=== PATIENT | female | born 1935 | race Caucasian/White ===

== ENCOUNTER 2020-06-07 13:55 | Inpatient (IN) | payer MEDICARE ==
[~2020-06-07] VITALS: Ht 195.6 cm; Wt 68.0 kg
[2020-06-07] MEDS ORDERED: SODIUM CHLORIDE 0.9% 1000ML 1,000 ML IV STA (13:56)
[2020-06-07] MEDS ORDERED: ASPIRIN 81 MG CHEW TAB PO ONE (14:00)
[2020-06-07 14:56] LABS: BASOPHILS % 0.2 % (0.0-1.0); EOSINOPHILS % 0.1 % (0.0-6.0); HEMATOCRIT 38.6 % (34.2-44.1); LYMPHOCYTES # (AUTO) 1.5 (1.0-3.2); LYMPHOCYTES % 8.9 % (18.0-39.1); MEAN CORPUSCULAR HEMOGLOBIN 23.7 pg (28-32); MEAN CORPUSCULAR HGB CONC 33.7 g/dL (31-35); MEAN CORPUSCULAR VOLUME 70.3 fL (81-99); MONOCYTES # (AUTO) 1.4 (0.2-0.8); MONOCYTES % 8.4 % (4.4-11.3); NEUTROPHILS # (AUTO) 13.4 (2.1-6.9); NEUTROPHILS % 81.9 % (38.7-80.0); PLATELET COUNT 531 x10e3/uL (140-360); RED BLOOD COUNT 5.49 x10e6/uL (3.6-5.1); RED CELL DISTRIBUTION WIDTH 15.9 % (11.7-14.4)
[2020-06-07] MEDS ORDERED: CEFTRIAXONE SOD 1 GM in SODIUM CHLORIDE 0.9% 50ML 50 ML IV ONE (15:00)
[2020-06-07 15:10] LABS: ALANINE AMINOTRANSFERASE 10 IU/L (0-55); ALBUMIN 3.1 g/dL (3.5-5.0); ALBUMIN/GLOBULIN RATIO 0.7 (0.8-2.0); ALKALINE PHOSPHATASE 130 IU/L (40-150); ANION GAP 17.6 mmol/L (8-16); BLOOD UREA NITROGEN 15 mg/dL (7-26); BUN/CREATININE RATIO 27 (6-25); CALCIUM 8.8 mg/dL (8.4-10.2); CARBON DIOXIDE 32 mmol/L (22-29); CHLORIDE 70 mmol/L (98-107); CREATINE KINASE 45 IU/L (29-168); CREATININE, SERUM 0.56 mg/dL (0.57-1.11); EST GLOMERULAR FILTRATION RATE > 60 ML/MIN (60-); GLUCOSE 69 mg/dL (74-118)
[2020-06-07 15:13] LABS: POTASSIUM 2.6 mmol/L (3.5-5.1); SODIUM 117 mmol/L (136-145)
[2020-06-07 15:32] LABS: CLARITY,URINE SL CLOUDY (CLEAR); COLOR,URINE STRAW (YELLOW); KETONES,URINE NEGATIVE (NEGATIVE); LEUKOCYTE ESTERASE ,URINE NEGATIVE (NEGATIVE); NITRITE,URINE NEGATIVE (NEGATIVE); PROTEIN,URINE DIPSTICK 1+ (NEGATIVE); URINE UROBILINOGEN 0.2 mg/dL (0.2 - 1)
[2020-06-07 15:49] LABS: AMORPHOUS SEDIMENT,URINE MODERATE (FEW); BACTERIA,URINE FEW /HPF
[2020-06-07] MEDS ORDERED: POTASSIUM CHLORIDE 20 MEQ TAB CR PO STA (15:59)
[2020-06-07] MEDS ORDERED: POTASSIUM CHLORIDE 20MEQ/100ML 100 ML IV STA (15:59)
[2020-06-07] MEDS ORDERED: SODIUM CHLORIDE 0.9% 1000ML 1,000 ML IV SCH (16:15)
[2020-06-07] MEDS ORDERED: TIZANIDINE HCL4 M1 PO (16:19)
[2020-06-07] MEDS ORDERED: METOPROLOL SUC100 MG (16:19)
[2020-06-07] MEDS ORDERED: LASIX20 MG PO (16:19)
[2020-06-07] MEDS ORDERED: HYDROCHLOROTH12.5 MG (16:19)
[2020-06-07] MEDS ORDERED: LOSARTAN POTAS100 MG PO (16:19)
[2020-06-07] MEDS ORDERED: LEVOTHYROXINE88 MCG PO (16:19)
[2020-06-07] MEDS ORDERED: LEVEMIR100 UNIT/1 SC (16:19)
[2020-06-07] MEDS ORDERED: CYMBALTA30 MG (16:19)
[2020-06-07] MEDS ORDERED: CRESTOR10 MG PO (16:19)
[2020-06-07] MEDS ORDERED: NOVOLOG100 UNIT/1 SC ×2 (16:19)
[2020-06-07] MEDS ORDERED: PROCARDIA XL30 MG (16:19)
[2020-06-07] MEDS ORDERED: NEURONTIN300 MG PO (16:19)
[2020-06-07] MEDS: PIPERACILLIN/TAZOBAC 3.375 GM in SODIUM CHLORIDE 0.9% 50ML 50 ML IV SCH ×2 (16:55→23:20)
[2020-06-07 18:00] LABS: MAGNESIUM 1.9 MG/DL (1.3-2.1); PHOSPHORUS 2.2 MG/DL (2.3-4.7)
[2020-06-07] MEDS: KCL 20MEQ/.9 SOD CHL 1,000 ML IV SCH (18:00)
[2020-06-07] MEDS ORDERED: POTASSIUM CHLORIDE 20MEQ/100ML 100 ML IV ONE (18:00)
[2020-06-07 18:06] LABS: FREE THYROXINE INDEX 2.9456 (1.4-3.8); THYROID STIMULATING HORMONE 0.954 uIU/mL (0.350-4.940)
[2020-06-07 18:12] VITALS: BP 142/54
[2020-06-07] MEDS ORDERED: ONDANSETRON HCL INJ 2MG/ML 2ML 2 MG/ML VIAL IV PRN (18:15)
[2020-06-07] MEDS ORDERED: HYDRALAZINE HCL 20 MG/ML VIAL IV PRN (18:15)
[2020-06-07] MEDS ORDERED: ACETAMINOPHEN 325 MG TAB PO PRN (18:15)
[2020-06-07] MEDS ORDERED: DEXTROSE 50% SYRINGE 50 ML IV PRN (18:15)
[2020-06-07 18:19] VITALS: BP 142/54
[2020-06-07 20:00] VITALS: BP 140/57
[2020-06-07] MEDS: SODIUM CHLORIDE 1 GM TAB PO SCH (20:48)
[2020-06-07] MEDS: INSULIN REGULAR, HUMAN 100 UNIT/1 ML 3ML VIAL SQ SCH (20:53)
[2020-06-07 21:21] VITALS: BP 140/57
[2020-06-07] MEDS ORDERED: PIPERACILLIN/TAZOBAC 3.375 GM VIAL ONE (21:59)
[2020-06-07] MEDS: GABAPENTIN 300 MG CAP PO SCH (21:59)
[2020-06-08] VITALS (7 sets, daily range): BP systolic 120–159; BP diastolic 52–61
[2020-06-08] MEDS: KCL 20MEQ/.9 SOD CHL 1,000 ML IV SCH ×2 (03:30→13:30)
[2020-06-08] MEDS ORDERED: SODIUM CHLORIDE 0.9% 50ML 50 ML ONE (04:11)
[2020-06-08] MEDS ORDERED: PIPERACILLIN/TAZOBAC 3.375 GM VIAL ONE ×2 (04:11→11:13)
[2020-06-08 05:12] LABS: BASOPHILS % 0.3 % (0.0-1.0); EOSINOPHILS # (AUTO) 0.1 (0.0-0.4); EOSINOPHILS % 0.4 % (0.0-6.0); HEMATOCRIT 33.5 % (34.2-44.1); LYMPHOCYTES # (AUTO) 1.4 (1.0-3.2); LYMPHOCYTES % 12.3 % (18.0-39.1); MEAN CORPUSCULAR HEMOGLOBIN 23.2 pg (28-32); MEAN CORPUSCULAR HGB CONC 32.8 g/dL (31-35); MEAN CORPUSCULAR VOLUME 70.7 fL (81-99); MONOCYTES # (AUTO) 1.3 (0.2-0.8); MONOCYTES % 11.7 % (4.4-11.3); NEUTROPHILS # (AUTO) 8.5 (2.1-6.9); NEUTROPHILS % 74.9 % (38.7-80.0); PLATELET COUNT 412 x10e3/uL (140-360); RED BLOOD COUNT 4.74 x10e6/uL (3.6-5.1); RED CELL DISTRIBUTION WIDTH 15.9 % (11.7-14.4)
[2020-06-08] MEDS: PIPERACILLIN/TAZOBAC 3.375 GM in SODIUM CHLORIDE 0.9% 50ML 50 ML IV SCH ×2 (05:33→17:23)
[2020-06-08] MEDS: LEVOTHYROXINE SODIUM 88 MCG TAB PO SCH (05:33)
[2020-06-08 05:38] LABS: ALANINE AMINOTRANSFERASE 9 IU/L (0-55); ALBUMIN 2.4 g/dL (3.5-5.0); ALBUMIN/GLOBULIN RATIO 0.8 (0.8-2.0); ALKALINE PHOSPHATASE 99 IU/L (40-150); ANION GAP 18.3 mmol/L (8-16); BLOOD UREA NITROGEN 8 mg/dL (7-26); BUN/CREATININE RATIO 16 (6-25); CALCIUM 7.4 mg/dL (8.4-10.2); CARBON DIOXIDE 23 mmol/L (22-29); CHLORIDE 82 mmol/L (98-107); CREATININE, SERUM 0.49 mg/dL (0.57-1.11); EST GLOMERULAR FILTRATION RATE > 60 ML/MIN (60-); GLUCOSE 106 mg/dL (74-118); POTASSIUM 3.3 mmol/L (3.5-5.1); SODIUM 120 mmol/L (136-145)
[2020-06-08 07:13] LABS: CREATINE KINASE MB 1.4 ng/mL (0-5.0)
[2020-06-08] MEDS: INSULIN REGULAR, HUMAN 100 UNIT/1 ML 3ML VIAL SQ SCH ×4 (07:30→21:00)
[2020-06-08] MEDS: DULOXETINE HCL 30 MG DELAYED RELEASE PO SCH (09:00)
[2020-06-08] MEDS: GABAPENTIN 300 MG CAP PO SCH (09:00)
[2020-06-08] MEDS: SODIUM CHLORIDE 1 GM TAB PO SCH ×3 (09:00→21:00)
[2020-06-08] MEDS: NIFEDIPINE CR 30 MG TAB PO SCH (09:00)
[2020-06-08 09:56] LABS: MAGNESIUM 1.6 MG/DL (1.3-2.1); PHOSPHORUS 1.6 MG/DL (2.3-4.7)
[2020-06-08] MEDS ORDERED: POTASSIUM PHOSPHATE 15 MM in SODIUM CHLORIDE 0.9% 250ML 250 ML IV ONE ×2 (10:15→12:30)
[2020-06-08] MEDS ORDERED: MAGNESIUM SULFATE 2GM/50ML 50 ML IV ONE (10:15)
[2020-06-08] MEDS ORDERED: POTASSIUM CHLORIDE 20 MEQ TAB CR PO ONE (10:15)
[2020-06-08] MEDS ORDERED: AZITHROMYCIN 500MG/NS 250 ML 250 ML IV SCH ×2 (13:00→17:00)
[2020-06-08] MEDS ORDERED: CEFTRIAXONE SOD 1 GM/50 ML BAG IV SCH (13:00)
[2020-06-08] MEDS ORDERED: CEFTRIAXONE SOD 1 GM in SODIUM CHLORIDE 0.9% 50ML 50 ML IV SCH ×2 (13:15→18:00)
[2020-06-08 13:41] LABS: CREATINE KINASE MB 1.4 ng/mL (0-5.0)
[2020-06-08] MEDS ORDERED: PIPER-TAZ 3.375 GM 50 ML IV SCH (14:00)
[2020-06-08] MEDS: ACETAMINOPHEN/CODEINE 300MG - 30MG TAB PO PRN (14:37)
[2020-06-08] MEDS: DRONABINOL 2.5MG PO SCH (16:25)
[2020-06-08] MEDS: VANCOMYCIN 1GM/NS 250 ML 250 ML IV SCH (17:00)
[2020-06-08] MEDS: HEPARIN SOD (PORCINE) 5,000 UNIT/ML VIAL SC SCH (21:00)
[2020-06-08] MEDS: SIMVASTATIN 20 MG TAB PO SCH (21:00)
[2020-06-09] VITALS (8 sets, daily range): BP systolic 131–168; BP diastolic 51–67
[2020-06-09] MEDS: PIPERACILLIN/TAZOBAC 3.375 GM in SODIUM CHLORIDE 0.9% 50ML 50 ML IV SCH ×3 (02:10→17:22)
[2020-06-09] MEDS: KCL 20MEQ/.9 SOD CHL 1,000 ML IV SCH ×3 (02:10→19:30)
[2020-06-09] MEDS: ACETAMINOPHEN/CODEINE 300MG - 30MG TAB PO PRN (04:00)
[2020-06-09] MEDS: VANCOMYCIN 1GM/NS 250 ML 250 ML IV SCH ×2 (05:00→17:00)
[2020-06-09] MEDS: LEVOTHYROXINE SODIUM 88 MCG TAB PO SCH (05:44)
[2020-06-09 05:53] LABS: BASOPHILS % 0.3 % (0.0-1.0); EOSINOPHILS # (AUTO) 0.2 (0.0-0.4); EOSINOPHILS % 1.1 % (0.0-6.0); HEMOGLOBIN 11.2 g/dL (12.0-16.0); LYMPHOCYTES # (AUTO) 1.6 (1.0-3.2); LYMPHOCYTES % 11.8 % (18.0-39.1); MEAN CORPUSCULAR HEMOGLOBIN 23.8 pg (28-32); MEAN CORPUSCULAR HGB CONC 32.9 g/dL (31-35); MEAN CORPUSCULAR VOLUME 72.2 fL (81-99); MONOCYTES # (AUTO) 1.5 (0.2-0.8); MONOCYTES % 11.4 % (4.4-11.3); NEUTROPHILS # (AUTO) 9.8 (2.1-6.9); NEUTROPHILS % 74.6 % (38.7-80.0); PLATELET COUNT 447 x10e3/uL (140-360); RED BLOOD COUNT 4.71 x10e6/uL (3.6-5.1); RED CELL DISTRIBUTION WIDTH 16.4 % (11.7-14.4)
[2020-06-09 06:06] LABS: INR 1.03; PROTHROMBIN TIME 14.1 seconds (11.9-14.5)
[2020-06-09 06:15] LABS: ANION GAP 15.7 mmol/L (8-16); BLOOD UREA NITROGEN 7 mg/dL (7-26); BUN/CREATININE RATIO 15 (6-25); CALCIUM 7.3 mg/dL (8.4-10.2); CARBON DIOXIDE 22 mmol/L (22-29); CHLORIDE 90 mmol/L (98-107); CREATININE, SERUM 0.47 mg/dL (0.57-1.11); EST GLOMERULAR FILTRATION RATE > 60 ML/MIN (60-); GLUCOSE 88 mg/dL (74-118); PHOSPHORUS 1.3 MG/DL (2.3-4.7); POTASSIUM 3.7 mmol/L (3.5-5.1); SODIUM 124 mmol/L (136-145)
[2020-06-09] MEDS: INSULIN REGULAR, HUMAN 100 UNIT/1 ML 3ML VIAL SQ SCH ×4 (07:30→22:16)
[2020-06-09] MEDS: DRONABINOL 2.5MG PO SCH ×2 (07:30→16:30)
[2020-06-09] MEDS: HEPARIN SOD (PORCINE) 5,000 UNIT/ML VIAL SC SCH (09:00)
[2020-06-09] MEDS: DULOXETINE HCL 30 MG DELAYED RELEASE PO SCH (09:00)
[2020-06-09] MEDS: NIFEDIPINE CR 30 MG TAB PO SCH (09:00)
[2020-06-09] MEDS: THIAMINE HCL 100 MG TAB PO SCH (09:00)
[2020-06-09] MEDS: MULTIVITAMINS/MINERALS TAB PO SCH (09:00)
[2020-06-09] MEDS: SODIUM CHLORIDE 1 GM TAB PO SCH ×3 (09:00→19:54)
[2020-06-09] MEDS: FOLIC ACID 1 MG TAB PO SCH (09:00)
[2020-06-09] MEDS: GABAPENTIN 300 MG CAP PO SCH (09:00)
[2020-06-09] MEDS ORDERED: PHOSPHORUS 250 MG TAB PO ONE (14:30)
[2020-06-09] MEDS: LOSARTAN POTASSIUM 100 MG TAB PO SCH (17:00)
[2020-06-09] MEDS: SIMVASTATIN 20 MG TAB PO SCH (19:54)
[2020-06-10] VITALS (7 sets, daily range): BP systolic 99–160; BP diastolic 55–70
[2020-06-10] MEDS: PIPERACILLIN/TAZOBAC 3.375 GM in SODIUM CHLORIDE 0.9% 50ML 50 ML IV SCH ×3 (02:00→20:00)
[2020-06-10] MEDS: VANCOMYCIN 1GM/NS 250 ML 250 ML IV SCH ×2 (05:15→17:18)
[2020-06-10] MEDS: KCL 20MEQ/.9 SOD CHL 1,000 ML IV SCH (05:30)
[2020-06-10] MEDS: LEVOTHYROXINE SODIUM 88 MCG TAB PO SCH (05:49)
[2020-06-10 05:51] LABS: ALANINE AMINOTRANSFERASE 6 IU/L (0-55); ALBUMIN 2.2 g/dL (3.5-5.0); ALBUMIN/GLOBULIN RATIO 0.6 (0.8-2.0); ALKALINE PHOSPHATASE 92 IU/L (40-150); ANION GAP 16.6 mmol/L (8-16); BLOOD UREA NITROGEN 5 mg/dL (7-26); BUN/CREATININE RATIO 10 (6-25); CALCIUM 7.5 mg/dL (8.4-10.2); CARBON DIOXIDE 20 mmol/L (22-29); CHLORIDE 97 mmol/L (98-107); CREATININE, SERUM 0.52 mg/dL (0.57-1.11); EST GLOMERULAR FILTRATION RATE > 60 ML/MIN (60-); GLUCOSE 158 mg/dL (74-118); POTASSIUM 3.6 mmol/L (3.5-5.1); SODIUM 130 mmol/L (136-145)
[2020-06-10 05:52] LABS: BASOPHILS # (AUTO) 0.1 (0.0-0.1); BASOPHILS % 0.4 % (0.0-1.0); EOSINOPHILS # (AUTO) 0.1 (0.0-0.4); EOSINOPHILS % 0.4 % (0.0-6.0); HEMATOCRIT 34.2 % (34.2-44.1); HEMOGLOBIN 11.1 g/dL (12.0-16.0); LYMPHOCYTES # (AUTO) 1.6 (1.0-3.2); LYMPHOCYTES % 10.3 % (18.0-39.1); MEAN CORPUSCULAR HEMOGLOBIN 24.2 pg (28-32); MEAN CORPUSCULAR HGB CONC 32.5 g/dL (31-35); MEAN CORPUSCULAR VOLUME 74.5 fL (81-99); MONOCYTES # (AUTO) 1.7 (0.2-0.8); MONOCYTES % 10.8 % (4.4-11.3); NEUTROPHILS # (AUTO) 12.1 (2.1-6.9); NEUTROPHILS % 77.4 % (38.7-80.0); PLATELET COUNT 415 x10e3/uL (140-360); RED BLOOD COUNT 4.59 x10e6/uL (3.6-5.1)
[2020-06-10] MEDS: DRONABINOL 2.5MG PO SCH ×2 (07:30→16:14)
[2020-06-10] MEDS: INSULIN REGULAR, HUMAN 100 UNIT/1 ML 3ML VIAL SQ SCH ×4 (08:17→21:47)
[2020-06-10] MEDS: SODIUM CHLORIDE 1 GM TAB PO SCH ×3 (09:00→21:44)
[2020-06-10] MEDS: LOSARTAN POTASSIUM 100 MG TAB PO SCH ×2 (09:00→16:14)
[2020-06-10] MEDS: DULOXETINE HCL 30 MG DELAYED RELEASE PO SCH (11:50)
[2020-06-10] MEDS: MULTIVITAMINS/MINERALS TAB PO SCH (11:50)
[2020-06-10] MEDS: FOLIC ACID 1 MG TAB PO SCH (11:50)
[2020-06-10] MEDS: GABAPENTIN 300 MG CAP PO SCH (11:50)
[2020-06-10] MEDS: NIFEDIPINE CR 30 MG TAB PO SCH (11:51)
[2020-06-10] MEDS: THIAMINE HCL 100 MG TAB PO SCH (11:51)
[2020-06-10] MEDS: SIMVASTATIN 20 MG TAB PO SCH (21:44)
[2020-06-10] MEDS: HEPARIN SOD (PORCINE) 5,000 UNIT/ML VIAL SC SCH (21:44)
[2020-06-11] VITALS (8 sets, daily range): BP systolic 100–140; BP diastolic 43–108
[2020-06-11] MEDS: PIPERACILLIN/TAZOBAC 3.375 GM in SODIUM CHLORIDE 0.9% 50ML 50 ML IV SCH ×3 (02:00→17:00)
[2020-06-11 05:08] LABS: BASOPHILS % 0.3 % (0.0-1.0); EOSINOPHILS # (AUTO) 0.2 (0.0-0.4); EOSINOPHILS % 1.7 % (0.0-6.0); LYMPHOCYTES # (AUTO) 1.6 (1.0-3.2); LYMPHOCYTES % 12.7 % (18.0-39.1); MEAN CORPUSCULAR HEMOGLOBIN 23.9 pg (28-32); MEAN CORPUSCULAR HGB CONC 32.3 g/dL (31-35); MONOCYTES # (AUTO) 1.3 (0.2-0.8); NEUTROPHILS # (AUTO) 9.3 (2.1-6.9); NEUTROPHILS % 74.7 % (38.7-80.0); PLATELET COUNT 377 x10e3/uL (140-360); RED BLOOD COUNT 4.19 x10e6/uL (3.6-5.1); RED CELL DISTRIBUTION WIDTH 17.2 % (11.7-14.4)
[2020-06-11 05:34] LABS: BLOOD UREA NITROGEN < 5 mg/dL (7-26); CALCIUM 7.6 mg/dL (8.4-10.2); CARBON DIOXIDE 23 mmol/L (22-29); CHLORIDE 97 mmol/L (98-107); CREATININE, SERUM 0.54 mg/dL (0.57-1.11); EST GLOMERULAR FILTRATION RATE > 60 ML/MIN (60-); GLUCOSE 149 mg/dL (74-118); SODIUM 131 mmol/L (136-145)
[2020-06-11 05:52] LABS: BUN/CREATININE RATIO 9 (6-25)
[2020-06-11] MEDS: LEVOTHYROXINE SODIUM 88 MCG TAB PO SCH (06:00)
[2020-06-11] MEDS: VANCOMYCIN 1GM/NS 250 ML 250 ML IV SCH ×2 (06:43→17:45)
[2020-06-11] MEDS: INSULIN REGULAR, HUMAN 100 UNIT/1 ML 3ML VIAL SQ SCH ×4 (08:30→21:00)
[2020-06-11] MEDS: FOLIC ACID 1 MG TAB PO SCH (08:50)
[2020-06-11] MEDS: MULTIVITAMINS/MINERALS TAB PO SCH (08:51)
[2020-06-11] MEDS: DRONABINOL 2.5MG PO SCH ×2 (08:59→16:32)
[2020-06-11] MEDS: THIAMINE HCL 100 MG TAB PO SCH (08:59)
[2020-06-11] MEDS: HEPARIN SOD (PORCINE) 5,000 UNIT/ML VIAL SC SCH ×2 (09:00→21:00)
[2020-06-11] MEDS: SODIUM CHLORIDE 1 GM TAB PO SCH ×3 (09:00→21:00)
[2020-06-11] MEDS ORDERED: POTASSIUM CHLORIDE 10MEQ EA PO NR (10:30)
[2020-06-11] MEDS: NYSTATIN SUSPENSION 5 ML UDC PO SCH ×2 (16:33→22:00)
[2020-06-11] MEDS: SIMVASTATIN 20 MG TAB PO SCH (21:00)
[2020-06-11] MEDS ORDERED: GABAPENTIN 300 MG CAP PO SCH (21:00)
[2020-06-11] MEDS: METOPROLOL TARTRATE 25 MG TAB PO SCH (23:00)
[2020-06-12] MEDS: PIPERACILLIN/TAZOBAC 3.375 GM in SODIUM CHLORIDE 0.9% 50ML 50 ML IV SCH ×2 (02:00→10:01)
[2020-06-12] MEDS: VANCOMYCIN 1GM/NS 250 ML 250 ML IV SCH (05:00)
[2020-06-12] MEDS: NYSTATIN SUSPENSION 5 ML UDC PO SCH ×3 (06:00→21:48)
[2020-06-12] MEDS: LEVOTHYROXINE SODIUM 88 MCG TAB PO SCH (06:00)
[2020-06-12] MEDS: INSULIN REGULAR, HUMAN 100 UNIT/1 ML 3ML VIAL SQ SCH ×4 (07:30→20:58)
[2020-06-12 08:24] LABS: ALANINE AMINOTRANSFERASE 11 IU/L (0-55); ALBUMIN 2.1 g/dL (3.5-5.0); ALBUMIN/GLOBULIN RATIO 0.6 (0.8-2.0); ALKALINE PHOSPHATASE 96 IU/L (40-150); ANION GAP 16.1 mmol/L (8-16); BLOOD UREA NITROGEN 5 mg/dL (7-26); BUN/CREATININE RATIO 10 (6-25); CARBON DIOXIDE 26 mmol/L (22-29); CHLORIDE 95 mmol/L (98-107); EST GLOMERULAR FILTRATION RATE > 60 ML/MIN (60-); GLUCOSE 143 mg/dL (74-118); MAGNESIUM 1.8 MG/DL (1.3-2.1); POTASSIUM 3.1 mmol/L (3.5-5.1); SODIUM 134 mmol/L (136-145)
[2020-06-12 08:30] VITALS: BP 149/74
[2020-06-12] MEDS: MULTIVITAMINS/MINERALS TAB PO SCH (08:35)
[2020-06-12] MEDS: THIAMINE HCL 100 MG TAB PO SCH (08:35)
[2020-06-12] MEDS: DRONABINOL 2.5MG PO SCH ×2 (08:35→16:48)
[2020-06-12] MEDS: SODIUM CHLORIDE 1 GM TAB PO SCH ×3 (08:35→21:45)
[2020-06-12] MEDS: FOLIC ACID 1 MG TAB PO SCH (08:35)
[2020-06-12] MEDS: METOPROLOL TARTRATE 25 MG TAB PO SCH ×2 (08:36→16:53)
[2020-06-12] MEDS: HEPARIN SOD (PORCINE) 5,000 UNIT/ML VIAL SC SCH ×2 (08:39→21:47)
[2020-06-12 08:56] VITALS: BP 149/74
[2020-06-12] MEDS ORDERED: PIPERACILLIN/TAZOBAC 3.375 GM in SODIUM CHLORIDE 0.9% 50ML 50 ML IV SCH ×5 (11:32→18:00)
[2020-06-12 11:52] VITALS: BP 146/62
[2020-06-12] MEDS ORDERED: POTASSIUM CHLORIDE 20MEQ/100ML 200 ML IV ONE (14:00)
[2020-06-12] MEDS: KCL 20MEQ/.9 SOD CHL 1,000 ML IV SCH (14:19)
[2020-06-12 16:15] VITALS: BP 145/78
[2020-06-12] MEDS ORDERED: PIPER-TAZ 3.375 GM 50 ML IV SCH (18:00)
[2020-06-12 21:00] VITALS: BP 142/96
[2020-06-12] MEDS: SIMVASTATIN 20 MG TAB PO SCH (21:45)
[2020-06-13 05:00] LABS: BASOPHILS % 0.3 % (0.0-1.0); EOSINOPHILS % 0.2 % (0.0-6.0); HEMATOCRIT 31.6 % (34.2-44.1); LYMPHOCYTES # (AUTO) 1.5 (1.0-3.2); LYMPHOCYTES % 13.1 % (18.0-39.1); MEAN CORPUSCULAR HEMOGLOBIN 24.1 pg (28-32); MEAN CORPUSCULAR HGB CONC 31.6 g/dL (31-35); MEAN CORPUSCULAR VOLUME 76.1 fL (81-99); MONOCYTES # (AUTO) 1.1 (0.2-0.8); MONOCYTES % 9.4 % (4.4-11.3); NEUTROPHILS % 76.5 % (38.7-80.0); PLATELET COUNT 210 x10e3/uL (140-360); RED BLOOD COUNT 4.15 x10e6/uL (3.6-5.1); RED CELL DISTRIBUTION WIDTH 18.2 % (11.7-14.4)
[2020-06-13] MEDS: KCL 20MEQ/.9 SOD CHL 1,000 ML IV SCH ×2 (05:40→16:40)
[2020-06-13] MEDS: LEVOTHYROXINE SODIUM 88 MCG TAB PO SCH (05:51)
[2020-06-13] MEDS: NYSTATIN SUSPENSION 5 ML UDC PO SCH ×3 (05:57→21:39)
[2020-06-13 06:37] LABS: ALANINE AMINOTRANSFERASE 8 IU/L (0-55); ALBUMIN 2.1 g/dL (3.5-5.0); ALBUMIN/GLOBULIN RATIO 0.6 (0.8-2.0); ALKALINE PHOSPHATASE 92 IU/L (40-150); ANION GAP 19.7 mmol/L (8-16); BLOOD UREA NITROGEN 6 mg/dL (7-26); BUN/CREATININE RATIO 12 (6-25); CALCIUM 7.8 mg/dL (8.4-10.2); CARBON DIOXIDE 22 mmol/L (22-29); CHLORIDE 98 mmol/L (98-107); CREATININE, SERUM 0.52 mg/dL (0.57-1.11); EST GLOMERULAR FILTRATION RATE > 60 ML/MIN (60-); GLUCOSE 157 mg/dL (74-118); POTASSIUM 3.7 mmol/L (3.5-5.1); SODIUM 136 mmol/L (136-145)
[2020-06-13 08:05] VITALS: BP 134/79
[2020-06-13] MEDS: FOLIC ACID 1 MG TAB PO SCH (08:28)
[2020-06-13] MEDS: DRONABINOL 2.5MG PO SCH ×2 (08:28→16:30)
[2020-06-13] MEDS: THIAMINE HCL 100 MG TAB PO SCH (08:29)
[2020-06-13] MEDS: HEPARIN SOD (PORCINE) 5,000 UNIT/ML VIAL SC SCH ×2 (08:31→21:00)
[2020-06-13] MEDS: SODIUM CHLORIDE 1 GM TAB PO SCH ×3 (08:31→21:39)
[2020-06-13] MEDS: METOPROLOL TARTRATE 25 MG TAB PO SCH ×2 (08:31→16:36)
[2020-06-13] MEDS: MULTIVITAMINS/MINERALS TAB PO SCH (08:31)
[2020-06-13] MEDS: INSULIN REGULAR, HUMAN 100 UNIT/1 ML 3ML VIAL SQ SCH ×4 (08:41→21:00)
[2020-06-13 08:42] VITALS: BP 134/79
[2020-06-13 11:49] VITALS: BP 132/66
[2020-06-13 15:36] VITALS: BP 140/76
[2020-06-13 20:18] VITALS: BP 140/76
[2020-06-13] MEDS: INSULIN GLARGINE 100 UNITS/ML VIAL SQ SCH (21:00)
[2020-06-13] MEDS: SIMVASTATIN 20 MG TAB PO SCH (21:39)
[2020-06-14] MEDS: NYSTATIN SUSPENSION 5 ML UDC PO SCH ×3 (05:38→22:00)
[2020-06-14] MEDS: LEVOTHYROXINE SODIUM 88 MCG TAB PO SCH (05:39)
[2020-06-14] MEDS: KCL 20MEQ/.9 SOD CHL 1,000 ML IV SCH (06:32)
[2020-06-14] MEDS: INSULIN REGULAR, HUMAN 100 UNIT/1 ML 3ML VIAL SQ SCH ×4 (07:30→21:00)
[2020-06-14 08:12] VITALS: BP 151/74
[2020-06-14 08:24] VITALS: BP 151/74
[2020-06-14] MEDS: DRONABINOL 2.5MG PO SCH ×2 (09:26→17:06)
[2020-06-14] MEDS: FOLIC ACID 1 MG TAB PO SCH (09:26)
[2020-06-14] MEDS: METOPROLOL TARTRATE 25 MG TAB PO SCH ×2 (09:28→17:07)
[2020-06-14] MEDS: MULTIVITAMINS/MINERALS TAB PO SCH (09:28)
[2020-06-14] MEDS: THIAMINE HCL 100 MG TAB PO SCH (09:29)
[2020-06-14] MEDS: HEPARIN SOD (PORCINE) 5,000 UNIT/ML VIAL SC SCH ×2 (09:40→21:00)
[2020-06-14 12:45] VITALS: BP_SYST 133; BP_SYST 183; BP_DIAS 82
[2020-06-14 15:12] VITALS: BP 123/56
[2020-06-14 20:44] VITALS: BP 177/143
[2020-06-14] MEDS: INSULIN GLARGINE 100 UNITS/ML VIAL SQ SCH (21:00)
[2020-06-14] MEDS: SIMVASTATIN 20 MG TAB PO SCH (21:24)
[2020-06-15 05:42] LABS: BASOPHILS % 0.4 % (0.0-1.0); EOSINOPHILS # (AUTO) 0.1 (0.0-0.4); EOSINOPHILS % 0.7 % (0.0-6.0); HEMATOCRIT 30.6 % (34.2-44.1); HEMOGLOBIN 9.8 g/dL (12.0-16.0); LYMPHOCYTES # (AUTO) 1.2 (1.0-3.2); LYMPHOCYTES % 11.1 % (18.0-39.1); MEAN CORPUSCULAR VOLUME 74.8 fL (81-99); MONOCYTES # (AUTO) 0.9 (0.2-0.8); MONOCYTES % 8.5 % (4.4-11.3); NEUTROPHILS # (AUTO) 8.4 (2.1-6.9); NEUTROPHILS % 78.5 % (38.7-80.0); PLATELET COUNT 390 x10e3/uL (140-360); RED BLOOD COUNT 4.09 x10e6/uL (3.6-5.1); RED CELL DISTRIBUTION WIDTH 18.2 % (11.7-14.4)
[2020-06-15 05:58] LABS: ANION GAP 12.7 mmol/L (8-16); BLOOD UREA NITROGEN 13 mg/dL (7-26); CARBON DIOXIDE 26 mmol/L (22-29); CHLORIDE 104 mmol/L (98-107); CREATININE, SERUM 0.55 mg/dL (0.57-1.11); POTASSIUM 3.7 mmol/L (3.5-5.1); SODIUM 139 mmol/L (136-145)
[2020-06-15 05:59] LABS: ALANINE AMINOTRANSFERASE 11 IU/L (0-55); ALBUMIN/GLOBULIN RATIO 0.6 (0.8-2.0); ALKALINE PHOSPHATASE 92 IU/L (40-150); BUN/CREATININE RATIO 24 (6-25); CALCIUM 8.1 mg/dL (8.4-10.2); EST GLOMERULAR FILTRATION RATE > 60 ML/MIN (60-); GLUCOSE 167 mg/dL (74-118)
[2020-06-15] MEDS: NYSTATIN SUSPENSION 5 ML UDC PO SCH (06:13)
[2020-06-15] MEDS: LEVOTHYROXINE SODIUM 88 MCG TAB PO SCH (06:14)
[2020-06-15 08:02] VITALS: BP 142/78
[2020-06-15] MEDS: INSULIN REGULAR, HUMAN 100 UNIT/1 ML 3ML VIAL SQ SCH ×3 (08:30→17:30)
[2020-06-15] MEDS: MULTIVITAMINS/MINERALS TAB PO SCH (09:20)
[2020-06-15] MEDS: FOLIC ACID 1 MG TAB PO SCH (09:20)
[2020-06-15] MEDS: THIAMINE HCL 100 MG TAB PO SCH (09:20)
[2020-06-15] MEDS: METOPROLOL TARTRATE 25 MG TAB PO SCH ×2 (09:20→17:30)
[2020-06-15] MEDS: HEPARIN SOD (PORCINE) 5,000 UNIT/ML VIAL SC SCH (09:20)
[2020-06-15 09:49] VITALS: BP 142/78
[2020-06-15 12:00] VITALS: BP 140/74
[2020-06-15] MEDS ORDERED: Insulin Glargine SQ (15:10)
[2020-06-15] MEDS ORDERED: LOPRESSOR25 MG PO (15:10)
[2020-06-15] MEDS ORDERED: SODIUM CHLORIDE 0.9% 500ML 500 ML IV ONE (15:45)
[2020-06-15 15:54] VITALS: BP 137/89
== END 2020-06-15 19:21 | DRG 871 ==
LOC: ER 14:01 → ERHOLD 16:24 → MED/SURG2 17:40
PROVIDERS: ADMIT Internal Medicine; ATTEND Internal Medicine
DX: A41.9 Sepsis, unspecified organism (principal); J69.0 Pneumonitis due to inhalation of food and vomit; J12.9 Viral pneumonia, unspecified; G93.41 Metabolic encephalopathy; J90 Pleural effusion, not elsewhere classified; E87.1 Hypo-osmolality and hyponatremia; N39.0 Urinary tract infection, site not specified; M48.54XA Collapsed vertebra, not elsewhere classified, thoracic region, initial encounter for fracture; B37.0 Candidal stomatitis; E44.0 Moderate protein-calorie malnutrition; D50.9 Iron deficiency anemia, unspecified; E87.6 Hypokalemia; Z66 Do not resuscitate; I10 Essential (primary) hypertension; E78.00 Pure hypercholesterolemia, unspecified; E11.9 Type 2 diabetes mellitus without complications; E03.9 Hypothyroidism, unspecified; M54.9 Dorsalgia, unspecified; Z85.3 Personal history of malignant neoplasm of breast; R53.81 Other malaise; E86.0 Dehydration; Z86.14 Personal history of Methicillin resistant Staphylococcus aureus infection; R13.10 Dysphagia, unspecified; T36.8X5A Adverse effect of other systemic antibiotics, initial encounter; T36.0X5A Adverse effect of penicillins, initial encounter; D64.9 Anemia, unspecified; F03.90 Unspecified dementia, unspecified severity, without behavioral disturbance, psychotic disturbance, mood disturbance, and anxiety; Z79.4 Long term (current) use of insulin; Z20.822 Contact with and (suspected) exposure to COVID-19; Z68.26 Body mass index [BMI] 26.0-26.9, adult
CPT/HCPCS: 36415; 70450; 70551; 71045; 71250; 74230; 80048; 80053; 80202; 81001; 82533; 82550; 82553; 82948; 83605; 83735; 83880; 84100; 84436; 84443; 84479; 84484; 84550; 85025; 85610; 87040; 87086; 93005; 96372; 97139; 99251; 99284; J0696; J1644; J1815; J1817; J2405; J2543; J3370; J3411; J3475; J3480; J7030; J7040; J7050; U0002